=== PATIENT | female | born 1965 | race Caucasian/White ===

== ENCOUNTER 2021-05-20 15:05 | Inpatient (IN) | payer MEDICARE, OTHER ==
[~2021-05-20] VITALS: Ht 149.9 cm; Wt 68.9 kg
[2021-05-20] MEDS ORDERED: LISI10TA29 PO (15:25)
[2021-05-20] MEDS ORDERED: BACL10TA PO (15:25)
[2021-05-20] MEDS ORDERED: PYRI-6 PO (15:25)
[2021-05-20] MEDS ORDERED: HYDR-4209 PO (15:25)
[2021-05-20] MEDS ORDERED: SERT25TA PO (15:25)
[2021-05-20] MEDS ORDERED: ASPI81TA31 PO (15:25)
[2021-05-20] MEDS ORDERED: MECL-159 PO (15:25)
[2021-05-20] MEDS ORDERED: ROPI3TAB4 PO (15:25)
[2021-05-20] MEDS ORDERED: OLAN5TAB3 PO (15:25)
[2021-05-20] MEDS ORDERED: PRAV10TA40 PO (15:25)
[2021-05-20] MEDS ORDERED: FLUO40CA49 PO (15:25)
[2021-05-20] MEDS ORDERED: OLAN15TA3 PO (15:25)
[2021-05-20] MEDS ORDERED: ALBU8.5H8 IH (15:25)
[2021-05-20] MEDS ORDERED: MONT10TA22 PO (15:25)
[2021-05-20] MEDS ORDERED: GLIP5TAB13 PO (15:25)
[2021-05-20] MEDS ORDERED: FLUT16SP NS (15:25)
[2021-05-20] MEDS ORDERED: ALPR2TAB7 PO (15:25)
[2021-05-20] MEDS ORDERED: METF-441 PO (15:25)
[2021-05-20] MEDS ORDERED: HYDR25TA4 PO (15:25)
[2021-05-20] MEDS ORDERED: DOXE50CA4 PO (15:25)
[2021-05-20] MEDS ORDERED: FLUT1BLS4 IH (15:25)
--- NOTE | 2021-05-20 17:21 | NUR ---
TRANSFERED TO MHU IN STABLE CONDITION
--- NOTE | 2021-05-20 17:45 | NUR ---
Gos/Center Mgr-Received report from Sachin REYES (ER)
--- NOTE | 2021-05-20 17:50 | NUR ---
Gps/Conservation Planner- Received patient from ER via wheel chair, alert, oriented x 3-4. Skin dry , intact, noted surgical scars on her right shoulder from orthopedic surgeries. Limited ROM to right shoulder , slight weakness left hand from previous stroke per patient. Ambulated to the bathroom with fair steady gait, able to clean self ind. after set up. Denies any suicidal ideation, upon face to face ,claimed that was taken to some Behavioral clinic yesterday by her daughter Yoli to be evaluated , next thing she know, she's in the ambulance to be transported to another facility. Cooperative , anxious during admission and interview, interactive. Routine admission care.
[2021-05-20] MEDS ORDERED: BLOOD SUGAR DIAGNOSTIC 1 EACH STRIP VI ONE (18:00)
[2021-05-20] MEDS ORDERED: MAG HYDROX/AL HYDROX/SIMETH 30 ML LIQUID UDC PO PRN (18:00)
[2021-05-20] MEDS ORDERED: MAGNESIUM HYDROXIDE 30 ML LIQUID UDC PO PRN (18:00)
[2021-05-20] MEDS ORDERED: LORAZEPAM 0.5 MG TABLET PO PRN (18:00)
[2021-05-20 20:00] VITALS: BP 119/57
[2021-05-20] MEDS ORDERED: MECLIZINE HCL 25 MG TABLET PO PRN (20:00)
[2021-05-20] MEDS ORDERED: ALBUTEROL SULFATE 8 GM HFA.AER.AD IH PRN (20:00)
[2021-05-20] MEDS: BACLOFEN 10 MG TABLET PO SCH (20:41)
[2021-05-20] MEDS ORDERED: ALBUTEROL SULFATE 2.5 MG/3 ML NEBU NEB PRN (20:45)
--- NOTE | 2021-05-20 21:00 | NUR ---
Received patient in the hallway. she is noted A/O x 4. she is able to verbalized her feelings. she is noted calm upon approached. Patient stated that she is her in the MHU because she was feeling sad and depressed d/t her right shoulder pain and incoming surgery; however, she stated that she is not feeling suicidal and she does not want to . she also stated that she is her voluntary. Patient was informed of her hold and was given her advisement as well as her book for patient's rights in mental health facilities. patient noted with low mood, affect is blunted. she appear to minimized symptoms. V/S are stable. She was given PO fluids and snacks. She is reassure for her safety. safety and fall precaution in place. will continue to monitor.
[2021-05-20] MEDS: HYDROCODONE/APAP 5-325MG TABLET PO PRN (22:09)
[2021-05-21] MEDS: ACETAMINOPHEN 325 MG TABLET PO PRN ×3 (05:20→15:56)
[2021-05-21 07:22] LABS: HEMATOCRIT 37.5 % (31.2-41.9); MEAN CORPUSCULAR HEMOGLOBIN 27.1 uug (24.7-32.8); MEAN CORPUSCULAR VOLUME 83.3 fL (75.5-95.3); PLATELET COUNT (AUTO) 245 K/uL (179-408)
[2021-05-21 07:30] VITALS: BP 140/51
[2021-05-21 08:12] LABS: BILIRUBIN,TOTAL 0.6 mg/dL (0.2-1.0); CREATININE 0.8 mg/dL (0.6-1.3); MAGNESIUM 1.7 mg/dL (1.8-2.4); PHOSPHOROUS 3.2 mg/dL (2.5-4.9); POTASSIUM 3.7 mmol/L (3.5-5.1); TOTAL PROTEIN, SERUM 8.8 g/dL (6.4-8.2)
[2021-05-21 08:32] LABS: THYROID STIMULATING HORMONE 0.855 mIU/mL (0.358-3.740)
[2021-05-21] MEDS: BACLOFEN 10 MG TABLET PO SCH ×2 (08:47→20:47)
[2021-05-21] MEDS: glipiZIDE 5 MG TABLET PO SCH (08:48)
[2021-05-21] MEDS: ASPIRIN 81 MG TAB.CHEW PO SCH (08:48)
[2021-05-21] MEDS: ATORVASTATIN 10 MG TABLET PO SCH (08:48)
[2021-05-21] MEDS: HYDROCODONE/APAP 5-325MG TABLET PO PRN (08:55)
[2021-05-21] MEDS: FLUTICASONE PROP NASAL SPRAY 16 GM BOTTLE NS SCH (08:57)
[2021-05-21] MEDS: HYDROCHLOROTHIAZIDE 25 MG TABLET PO SCH (08:57)
[2021-05-21] MEDS: PYRIDOXINE HCL 100 MG TABLET PO SCH (09:00)
[2021-05-21] MEDS ORDERED: PYRIDOXINE HCL 100 MG PO SCH (09:00)
[2021-05-21] MEDS ORDERED: Medication Not On Formulary EA (Pravastatin Sodium 10 MG) PO SCH (09:00)
[2021-05-21] MEDS ORDERED: ROPINIROLE HCL 3 MG PO SCH (09:00)
[2021-05-21] MEDS: ropiniROLE 1 MG TABLET PO SCH ×3 (09:01→16:37)
[2021-05-21] MEDS: MONTELUKAST SODIUM 10 MG TABLET PO SCH (09:03)
[2021-05-21] MEDS: NICOTINE 7 MG/24HR PATCH TD SCH (09:07)
[2021-05-21] MEDS: LISINOPRIL 10 MG TABLET PO SCH (09:08)
[2021-05-21] MEDS ORDERED: MAGNESIUM OXIDE 400 MG TABLET PO ONE (10:30)
[2021-05-21] MEDS: OLANZAPINE 5 MG TABLET PO SCH ×2 (13:51→20:47)
--- NOTE | 2021-05-21 15:46 | NUR ---
EVERARDO Initial Discharge Note: Pt currently resides at [address] [place] [address] [address] [place] [address] ([phone]). Per pt, she will return home upon discharge to her family. EVERARDO will continue to work with pt, family and MD to ensure a safe and proper discharge.
--- NOTE | 2021-05-21 15:47 | NUR ---
SW Admit Source: Pt currently resides at [address] [place] [address] [address] [place] [address] ([phone]). Per pt, she will return home upon discharge to her family. EVERARDO will continue to work with pt, family and MD to ensure a safe and proper discharge.
[2021-05-21 17:34] VITALS: BP 130/71
[2021-05-21 20:00] VITALS: BP 107/51
[2021-05-22] MEDS: HYDROCODONE/APAP 5-325MG TABLET PO PRN ×3 (00:21→18:35)
[2021-05-22] MEDS: ACETAMINOPHEN 325 MG TABLET PO PRN (05:53)
[2021-05-22 07:43] VITALS: BP 134/60
[2021-05-22] MEDS: ASPIRIN 81 MG TAB.CHEW PO SCH (08:08)
[2021-05-22] MEDS: NICOTINE 7 MG/24HR PATCH TD SCH (08:08)
[2021-05-22] MEDS: ropiniROLE 1 MG TABLET PO SCH ×3 (08:08→16:21)
[2021-05-22] MEDS: BACLOFEN 10 MG TABLET PO SCH ×2 (08:08→20:22)
[2021-05-22] MEDS: MONTELUKAST SODIUM 10 MG TABLET PO SCH (08:08)
[2021-05-22] MEDS: OLANZAPINE 5 MG TABLET PO SCH ×2 (08:08→20:22)
[2021-05-22] MEDS: ATORVASTATIN 10 MG TABLET PO SCH (08:08)
[2021-05-22] MEDS: HYDROCHLOROTHIAZIDE 25 MG TABLET PO SCH (08:08)
[2021-05-22] MEDS: PYRIDOXINE HCL 100 MG TABLET PO SCH (08:09)
[2021-05-22] MEDS: FLUTICASONE PROP NASAL SPRAY 16 GM BOTTLE NS SCH (08:09)
[2021-05-22] MEDS: LISINOPRIL 10 MG TABLET PO SCH (08:09)
[2021-05-22] MEDS: GLUCERNA SHAKE VANILLA 237 ML CAN PO SCH (08:09)
[2021-05-22] MEDS: glipiZIDE 5 MG TABLET PO SCH (08:09)
[2021-05-22] MEDS: LORAZEPAM 1 MG TABLET PO PRN (09:19)
[2021-05-22 16:23] VITALS: BP 112/58
[2021-05-22 20:00] VITALS: BP 110/50
--- NOTE | 2021-05-22 23:09 | NUR ---
RECEIVED PATIENT IN HER ROOM IN BED. SHE IS NOTED AWAKE A/O X 3 ABLE TO VERBALIZED FEELINGS. SHE IS NOTED ISOLATIVE AND WITHDRAWN. HOWEVER, SHE DENIED SI/HI//AH. SHE STATED, "I AM DOING FINE". SHE IS ABLE TO VERBALLY CFS. V/S STABLE. SHE IS COMPLIANT WITH MEDICATION REGIMENT DIET AND CARE. SHE WAS GIVEN PO FLUIDS AND SNACKS. PT IS REASSURED FOR HER SAFETY. SAFETY AND FALL PRECAUTION IN PLACE. WILL CONTINUE TO MONITOR.
[2021-05-23 07:30] VITALS: BP 119/53
[2021-05-23] MEDS: ACETAMINOPHEN 325 MG TABLET PO PRN (07:57)
[2021-05-23] MEDS: glipiZIDE 5 MG TABLET PO SCH (08:01)
[2021-05-23] MEDS: ASPIRIN 81 MG TAB.CHEW PO SCH (08:01)
[2021-05-23] MEDS: ATORVASTATIN 10 MG TABLET PO SCH (08:01)
[2021-05-23] MEDS: SERTRALINE HCL 50 MG TABLET PO SCH (08:02)
[2021-05-23] MEDS: OLANZAPINE 5 MG TABLET PO SCH ×2 (08:02→20:02)
[2021-05-23] MEDS: ropiniROLE 1 MG TABLET PO SCH ×4 (08:03→16:51)
[2021-05-23] MEDS: BACLOFEN 10 MG TABLET PO SCH ×2 (08:03→20:03)
[2021-05-23] MEDS: LISINOPRIL 10 MG TABLET PO SCH (08:03)
[2021-05-23] MEDS: NICOTINE 7 MG/24HR PATCH TD SCH (08:03)
[2021-05-23] MEDS: MONTELUKAST SODIUM 10 MG TABLET PO SCH (08:04)
[2021-05-23] MEDS: PYRIDOXINE HCL 100 MG TABLET PO SCH (08:04)
[2021-05-23] MEDS: FLUTICASONE PROP NASAL SPRAY 16 GM BOTTLE NS SCH (08:05)
[2021-05-23] MEDS: GLUCERNA SHAKE VANILLA 237 ML CAN PO SCH (08:05)
[2021-05-23] MEDS: HYDROCHLOROTHIAZIDE 25 MG TABLET PO SCH ×2 (08:06→08:07)
[2021-05-23] MEDS: LORAZEPAM 1 MG TABLET PO PRN (09:16)
--- NOTE | 2021-05-23 09:28 | NUR ---
Patient is given Ativan 1 mg at 09:16 for anxiety, will be monitored for effectiveness.
[2021-05-23] MEDS: HYDROCODONE/APAP 5-325MG TABLET PO PRN ×2 (12:48→21:41)
--- NOTE | 2021-05-23 15:19 | NUR ---
Received patient awake in her room. A/O X 3 to person, place, environment. Pt. is depressed, withdrawn, quiet, isolative at times. Denies SI/HI AV/VH. Ambulates without assistance. Compliant with medications. Tylenol 650 mg was given at 07:57 for headache, effective. Ativan 1 mg was given at 09:16 for anxiety, effective. [place] was given at 12:49 for right shoulder pain rated 9 on the scale of 1 -10, effective. Emotional support given. Fall and safe precautions implemented.
[2021-05-23 16:07] VITALS: BP 109/53
--- NOTE | 2021-05-23 18:42 | NUR ---
Patient complaint about numbness in her right side: face, shoulder, and arm. Pt. stated "I'm having a stroke". Pt. has history of strokes. Pt. was assessed, no eye dropping, can lift both arms, smiles symmetrically, talks and walks normally. Pt. has little red spots on her forehead and cheeks. Patient takes Aspirin 81 mg daily. was informed around 18:35.
[2021-05-23 19:48] VITALS: BP 114/52
[2021-05-23] MEDS: TEMAZEPAM 7.5 MG CAPSULE PO PRN (23:04)
[2021-05-24 07:49] VITALS: BP 101/53
[2021-05-24] MEDS: SERTRALINE HCL 50 MG TABLET PO SCH (08:22)
[2021-05-24] MEDS: OLANZAPINE 5 MG TABLET PO SCH ×2 (08:22→20:18)
[2021-05-24] MEDS: FLUTICASONE PROP NASAL SPRAY 16 GM BOTTLE NS SCH (08:22)
[2021-05-24] MEDS: glipiZIDE 5 MG TABLET PO SCH (08:22)
[2021-05-24] MEDS: ASPIRIN 81 MG TAB.CHEW PO SCH (08:22)
[2021-05-24] MEDS: ropiniROLE 1 MG TABLET PO SCH ×3 (08:23→17:00)
[2021-05-24] MEDS: MONTELUKAST SODIUM 10 MG TABLET PO SCH (08:23)
[2021-05-24] MEDS: NICOTINE 7 MG/24HR PATCH TD SCH (08:23)
[2021-05-24] MEDS: PYRIDOXINE HCL 100 MG TABLET PO SCH (08:23)
[2021-05-24] MEDS: ATORVASTATIN 10 MG TABLET PO SCH (08:23)
[2021-05-24] MEDS: HYDROCHLOROTHIAZIDE 25 MG TABLET PO SCH (08:24)
[2021-05-24] MEDS: LISINOPRIL 10 MG TABLET PO SCH (08:25)
[2021-05-24] MEDS: GLUCERNA SHAKE VANILLA 237 ML CAN PO SCH (08:25)
[2021-05-24] MEDS: BACLOFEN 10 MG TABLET PO SCH ×2 (08:32→20:18)
[2021-05-24] MEDS: HYDROCODONE/APAP 5-325MG TABLET PO PRN ×3 (10:22→17:01)
--- NOTE | 2021-05-24 14:42 | NUR ---
Received patient sleeping in her room. A/O X 3 to person, place. Pt. is calm, cooperative with care, isolative, withdrawn, quiet. Denies SI. Ambulates independently. Total care. [place] was given at 10:22 for right shoulder pain rated 9 on the scale of 1 to 10, effective. Pt. is encourage to vent feelings and emotions. Fall and safety precautions implemented.
[2021-05-24 17:55] VITALS: BP 113/42
[2021-05-24 19:42] VITALS: BP 107/48
[2021-05-24] MEDS: TEMAZEPAM 7.5 MG CAPSULE PO PRN (20:50)
[2021-05-25] MEDS: LORAZEPAM 1 MG TABLET PO PRN (06:52)
[2021-05-25] MEDS: NICOTINE 7 MG/24HR PATCH TD SCH (08:16)
[2021-05-25] MEDS: ASPIRIN 81 MG TAB.CHEW PO SCH (08:17)
[2021-05-25] MEDS: OLANZAPINE 5 MG TABLET PO SCH ×2 (08:17→20:47)
[2021-05-25] MEDS: ATORVASTATIN 10 MG TABLET PO SCH (08:17)
[2021-05-25] MEDS: BACLOFEN 10 MG TABLET PO SCH ×2 (08:17→20:48)
[2021-05-25] MEDS: LISINOPRIL 10 MG TABLET PO SCH (08:20)
[2021-05-25] MEDS: glipiZIDE 5 MG TABLET PO SCH (08:22)
[2021-05-25] MEDS: PYRIDOXINE HCL 100 MG TABLET PO SCH (08:23)
[2021-05-25] MEDS: MONTELUKAST SODIUM 10 MG TABLET PO SCH (08:23)
[2021-05-25] MEDS: HYDROCHLOROTHIAZIDE 25 MG TABLET PO SCH (08:24)
[2021-05-25] MEDS: ropiniROLE 1 MG TABLET PO SCH ×3 (08:26→17:19)
[2021-05-25] MEDS: GLUCERNA SHAKE VANILLA 237 ML CAN PO SCH (08:36)
[2021-05-25] MEDS: FLUTICASONE PROP NASAL SPRAY 16 GM BOTTLE NS SCH (08:36)
[2021-05-25] MEDS: HYDROCODONE/APAP 5-325MG TABLET PO PRN ×2 (12:09→21:03)
[2021-05-25 15:49] VITALS: BP 107/48
--- NOTE | 2021-05-25 16:28 | NUR ---
EVERARDO Family Contact Update: EVERARDO contacted pts' boyfriend, Dada ([phone]) and pt's daughter, Marlys ([phone]). EVERARDO was not able to leave a voicemail for both Dada and Marlys. EVERARDO notified pt that she has tried calling multiple times and unable to reach them to discuss discharge plans for the pt.
[2021-05-25] MEDS: HYDROCORTISONE 1% CREAM 30 GM TUBE TP PRN (17:29)
[2021-05-25 19:54] VITALS: BP 101/51
[2021-05-25] MEDS: TEMAZEPAM 7.5 MG CAPSULE PO PRN (22:02)
--- NOTE | 2021-05-26 04:31 | NUR ---
Received to care, stanley looney, pleasant upon approach. Denied wanting to hurt self, but still feels depressed. Stated she participated in therapeutic activities during the day. Encouraged to interact with peers, more. PRN [place] was given for right shoulder pain, with good effects. She slept well after taking PRN Restoril. No distress noted during rounds. Will continue to monitor closely.
[2021-05-26 07:30] VITALS: BP 104/48
[2021-05-26] MEDS: ATORVASTATIN 10 MG TABLET PO SCH (08:30)
[2021-05-26] MEDS: OLANZAPINE 5 MG TABLET PO SCH ×2 (08:30→21:09)
[2021-05-26] MEDS: BACLOFEN 10 MG TABLET PO SCH ×2 (08:30→21:09)
[2021-05-26] MEDS: ASPIRIN 81 MG TAB.CHEW PO SCH (08:30)
[2021-05-26] MEDS: glipiZIDE 5 MG TABLET PO SCH (08:30)
[2021-05-26] MEDS: FLUTICASONE PROP NASAL SPRAY 16 GM BOTTLE NS SCH (08:30)
[2021-05-26] MEDS: MONTELUKAST SODIUM 10 MG TABLET PO SCH (08:31)
[2021-05-26] MEDS: ropiniROLE 1 MG TABLET PO SCH ×3 (08:31→16:15)
[2021-05-26] MEDS: NICOTINE 7 MG/24HR PATCH TD SCH (08:32)
[2021-05-26] MEDS: PYRIDOXINE HCL 100 MG TABLET PO SCH (08:32)
[2021-05-26] MEDS: HYDROCHLOROTHIAZIDE 25 MG TABLET PO SCH (08:35)
[2021-05-26] MEDS: LISINOPRIL 10 MG TABLET PO SCH (08:35)
--- NOTE | 2021-05-26 08:38 | NUR ---
EVERARDO Family Contact: EVERARDO contacted pt's daughter, Marlys ([phone]) and left a second voicemail for a call back to discuss discharge plan.
[2021-05-26] MEDS: HYDROCORTISONE 1% CREAM 30 GM TUBE TP PRN (08:47)
[2021-05-26] MEDS: GLUCERNA SHAKE VANILLA 237 ML CAN PO SCH (08:56)
[2021-05-26] MEDS: HYDROCODONE/APAP 5-325MG TABLET PO PRN (10:44)
[2021-05-26] MEDS: LORAZEPAM 1 MG TABLET PO PRN (14:15)
[2021-05-26] MEDS ORDERED: MAGNESIUM OXIDE 400 MG TABLET PO ONE (15:30)
[2021-05-26 16:00] VITALS: BP 124/49
[2021-05-26 20:00] VITALS: BP 110/50
[2021-05-26] MEDS: TEMAZEPAM 7.5 MG CAPSULE PO PRN (21:09)
--- NOTE | 2021-05-27 02:14 | NUR ---
GPS/NSG Patient first observed awake in bed, disheveled appearance. unkempt, withdrawn. Pleasant on approach, compliant with HS medication. Denied suicidal ideation. Continue to monitor for safety.
[2021-05-27 07:25] LABS: CREATININE 0.8 mg/dL (0.6-1.3); MAGNESIUM 1.8 mg/dL (1.8-2.4); POTASSIUM 4.6 mmol/L (3.5-5.1)
[2021-05-27 07:30] VITALS: BP 128/50
[2021-05-27] MEDS: LISINOPRIL 10 MG TABLET PO SCH (08:24)
[2021-05-27] MEDS: NICOTINE 7 MG/24HR PATCH TD SCH (08:24)
[2021-05-27] MEDS: OLANZAPINE 5 MG TABLET PO SCH ×2 (08:24→21:11)
[2021-05-27] MEDS: ASPIRIN 81 MG TAB.CHEW PO SCH (08:24)
[2021-05-27] MEDS: glipiZIDE 5 MG TABLET PO SCH (08:25)
[2021-05-27] MEDS: ATORVASTATIN 10 MG TABLET PO SCH (08:25)
[2021-05-27] MEDS: MONTELUKAST SODIUM 10 MG TABLET PO SCH (08:26)
[2021-05-27] MEDS: PYRIDOXINE HCL 100 MG TABLET PO SCH (08:26)
[2021-05-27] MEDS: FLUTICASONE PROP NASAL SPRAY 16 GM BOTTLE NS SCH (08:27)
[2021-05-27] MEDS: HYDROCHLOROTHIAZIDE 25 MG TABLET PO SCH (08:27)
[2021-05-27] MEDS: GLUCERNA SHAKE VANILLA 237 ML CAN PO SCH (08:28)
[2021-05-27] MEDS: ropiniROLE 1 MG TABLET PO SCH ×3 (08:30→17:07)
[2021-05-27] MEDS: BACLOFEN 10 MG TABLET PO SCH ×2 (08:39→21:11)
[2021-05-27] MEDS: HYDROCODONE/APAP 5-325MG TABLET PO PRN (10:12)
--- NOTE | 2021-05-27 15:00 | NUR ---
Received patient sleeping in her room. A/O X [address] [place] is given at 10:12 for right shoulder pain, effective. Pt. is withdrawn, isolative, calm and cooperative with care. Fall and safety precautions implemented.
[2021-05-27 17:08] VITALS: BP 123/63
[2021-05-27] MEDS: LORAZEPAM 1 MG TABLET PO PRN (17:29)
--- NOTE | 2021-05-27 17:45 | NUR ---
Patient is given Ativan for anxiety, will be monitored for effectiveness.
[2021-05-27 20:00] VITALS: BP 112/50
[2021-05-27] MEDS: TEMAZEPAM 7.5 MG CAPSULE PO PRN (21:11)
[2021-05-28] MEDS: HYDROCODONE/APAP 5-325MG TABLET PO PRN (06:14)
[2021-05-28 07:30] VITALS: BP 127/62
--- NOTE | 2021-05-28 08:00 | NUR ---
rec'd patient alert and awake no c/o [id number] or homocidal plans , c/o right shoulder discomfort which is on going from previous dislocation of right shoulder. Or intake fair [id number] patient nto finish tray.minimal mpeer interaction noted continu too providea safe environment .
[2021-05-28] MEDS: ATORVASTATIN 10 MG TABLET PO SCH (09:50)
[2021-05-28] MEDS: glipiZIDE 5 MG TABLET PO SCH (09:50)
[2021-05-28] MEDS: OLANZAPINE 5 MG TABLET PO SCH (09:50)
[2021-05-28] MEDS: LISINOPRIL 10 MG TABLET PO SCH (09:51)
[2021-05-28] MEDS: GLUCERNA SHAKE VANILLA 237 ML CAN PO SCH (09:52)
[2021-05-28] MEDS: ASPIRIN 81 MG TAB.CHEW PO SCH (09:52)
[2021-05-28] MEDS: NICOTINE 7 MG/24HR PATCH TD SCH (09:54)
[2021-05-28] MEDS: ropiniROLE 1 MG TABLET PO SCH ×2 (10:01→13:23)
[2021-05-28] MEDS: MONTELUKAST SODIUM 10 MG TABLET PO SCH (10:03)
[2021-05-28] MEDS: HYDROCHLOROTHIAZIDE 25 MG TABLET PO SCH (10:03)
[2021-05-28] MEDS: PYRIDOXINE HCL 100 MG TABLET PO SCH (10:03)
[2021-05-28] MEDS: FLUTICASONE PROP NASAL SPRAY 16 GM BOTTLE NS SCH (10:34)
[2021-05-28] MEDS: BACLOFEN 10 MG TABLET PO SCH (10:34)
--- NOTE | 2021-05-28 11:07 | NUR ---
EVERARDO Discharge Note Pt will be discharged to Home [address] via family transportation provided by [facility] at 2PM. EVERARDO spoke with [facility] ([phone]) and patients india [facility] ([phone]) who states they are ready to accept the patient today. Pt is aware and agreeable with discharge plans. Pt is alert and oriented x4, pt is ready to return home to provide care for herself. Pt denies any suicidal or homicidal ideation. Pts daughter Marlys ([phone] is aware and agreeable with the discharge plan. Per patients daughter Marlys, pt will follow-up with her Physician Dr. Vivas for a psychiatrist referral. Pt presents with calm mood and congruent affect.
[2021-05-28] MEDS: LORAZEPAM 1 MG TABLET PO PRN (11:41)
--- NOTE | 2021-05-28 12:34 | NUR ---
Gps/Health Program Analyst- Called in prescriptions to [facility] [place] [address] as per patient's request, ([phone]) spoked to [facility] (Pharmacist) they are open till 2100 tonignt patient was informed. Routine medications reviewed by Ayesha Booth NP .
--- NOTE | 2021-05-28 15:06 | NUR ---
1400 patient have d/c plans and received [id number] and follow up care plans and medication schedule to continue at home meds. patient left with all belongins as siigned for. patient diened suicidal plans .pATIENTS S O HERE to pick patient up , patient escorted to car in no distress.
[2021-05-28 15:25] VITALS: BP 127/62
== END 2021-05-28 15:35 | disposition home or self-care (01) | DRG 885 ==
LOC: ER 15:05 → GPS 17:05
PROVIDERS: ADMIT Psychiatry & Neurology Psychosomatic Medicine; ATTEND Nurse Practitioner Family
DX: F31.9 Bipolar disorder, unspecified (principal); R45.851 Suicidal ideations; D68.59 Other primary thrombophilia; G25.81 Restless legs syndrome; R73.03 Prediabetes; E78.5 Hyperlipidemia, unspecified; E83.42 Hypomagnesemia; F19.10 Other psychoactive substance abuse, uncomplicated; F43.10 Post-traumatic stress disorder, unspecified; G89.29 Other chronic pain; M19.90 Unspecified osteoarthritis, unspecified site; I11.9 Hypertensive heart disease without heart failure; Z86.73 Personal history of transient ischemic attack (TIA), and cerebral infarction without residual deficits; Z68.30 Body mass index [BMI] 30.0-30.9, adult; Z79.51 Long term (current) use of inhaled steroids; Z90.711 Acquired absence of uterus with remaining cervical stump; Z90.49 Acquired absence of other specified parts of digestive tract; F12.10 Cannabis abuse, uncomplicated; Z79.84 Long term (current) use of oral hypoglycemic drugs; M25.511 Pain in right shoulder; Z88.8 Allergy status to other drugs, medicaments and biological substances; Z88.5 Allergy status to narcotic agent; Z88.0 Allergy status to penicillin; Z91.013 Allergy to seafood; Z20.822 Contact with and (suspected) exposure to COVID-19; Z87.891 Personal history of nicotine dependence
CPT/HCPCS: 36415; 83735; 84100; 84443; 85025; A4663; A9150; J3535